=== PATIENT | female | born 1995 | race American Indian/Alaskan Native ===

== ENCOUNTER 2018-12-15 18:12 | Emergency (ER) | payer OTHER ==
[2018-12-15 19:56] VITALS: BP 125/95
--- NOTE | 2018-12-15 19:56 | Emergency Department Report ---
Chief Complaint: Chest Pain Stated Complaint: CHEST PAIN WK/SOB Time Seen by Provider: 12/15/18 19:52 - HPI History of Present Illness: SOB that began 2-3 days ago states also having substernal CP also c/o red bumps on the back of her tongue no sore throat no cough no fever (+) smoker (+) marijuana MSE screening note: Focused history and physical exam performed. Due to findings the following was ordered: CXR ED Disposition for MSE Condition: Stable
--- NOTE | 2018-12-15 21:01 | XRay Report ---
PROCEDURE: CHEST 1 VIEW TECHNIQUE: Chest radiograph posteroanterior projection. CPT 55764 HISTORY: Shortness of breath COMPARISONS: None . FINDINGS: Heart: Normal. Mediastinum/Vessels: Normal. Lungs/Pleural space: Normal. Bony thorax: No acute osseous abnormality. IMPRESSION: Normal examination. This document is electronically signed by Sukhdev Cao MD., December 15 2018 08:59:26 PM ET
--- NOTE | 2018-12-15 21:28 | Emergency Department Report ---
ED Shortness of Breath HPI - General Chief Complaint: Chest Pain Stated Complaint: CHEST PAIN WK/SOB Time Seen by Provider: 12/15/18 19:52 Source: patient Mode of arrival: Ambulatory Limitations: No Limitations - History of Present Illness Initial Comments: Ms. Riddle is a 23 yo female who has had intermittent chest pain and shortness of breath for one week. Sharp left upper chest pain which lasted only several minutes. Last episode occurred a few days prior. Mild shortness of breath. She hears herself when she breathes. She also desires a test. She saw spots on her tongue. Has had fever, chills. No cough. Does smoke cigarettes "a lot". Complaint: shortness of breath -: Gradual, week(s) (1) Severity: mild Consistency: intermittent Improves With: nothing Worsens With: nothing - Related Data Previous Rx's Medication Instructions Recorded Last Taken Type predniSONE [Deltasone] 3 tab PO QDAY 5 Days #15 tab 12/15/18 Unknown Rx Allergies Allergy/AdvReac Type Severity Reaction Status Date / Time No Known Allergies Allergy Unverified 12/15/18 18:15 ED Review of Systems ROS: Stated complaint: CHEST PAIN WK/SOB Other details as noted in HPI Comment: All other systems reviewed and negative Constitutional: fever Respiratory: shortness of breath. denies: cough Gastrointestinal: denies: abdominal pain ED Past Medical Hx - Past Medical History Previous Medical History?: No - Social History Smoking Status: Current Every Day Smoker Substance Use Type: Alcohol, Marijuana - Medications Home Medications: Home Medications Medication Instructions Recorded Confirmed Last Taken Type predniSONE [Deltasone] 3 tab PO QDAY 5 Days #15 tab 12/15/18 Unknown Rx ED Physical Exam - General Limitations: No Limitations General appearance: alert, in no apparent distress, other (pleasant talkative no acute distress) - Head Head exam: Present: atraumatic, normocephalic - Eye Eye exam: Present: normal appearance - ENT ENT exam: Present: mucous membranes moist - Neck Neck exam: Present: normal inspection, full ROM - Respiratory Respiratory exam: Present: normal lung sounds bilaterally. Absent: respiratory distress, wheezes, rales, rhonchi - Cardiovascular Cardiovascular Exam: Present: regular rate, normal rhythm, normal heart sounds. Absent: systolic murmur, diastolic murmur, rubs, gallop - GI/Abdominal GI/Abdominal exam: Present: soft, normal bowel sounds. Absent: distended, tenderness, guarding, rebound - Extremities Exam Extremities exam: Present: normal inspection - Back Exam Back exam: Present: normal inspection - Neurological Exam Neurological exam: Present: alert, oriented X3 - Psychiatric Psychiatric exam: Present: normal affect, normal mood - Skin Skin exam: Present: warm, dry, intact, normal color. Absent: rash ED Course Vital Signs 12/15/18 19:53 Temperature 99.3 F Pulse Rate 84 Respiratory 18 Rate Blood Pressure 125/95 O2 Sat by Pulse 100 Oximetry ED Medical Decision Making - EKG Data EKG shows normal: sinus rhythm, axis, intervals, QRS complexes, ST-T waves Rate: normal - Radiology Data Radiology results: report reviewed Normal chest x-ray. PA Lateral two-view - Medical Decision Making Ms. Riddle presents with persistent shortness of breath and intermittent chest pain. No indication of pulmonary embolism, pneumothorax, pneumonia. PERC negative. No indication of pericarditis. Normal EKG. Normal XCR. Suspect irritation from tobacco abuse. Strongly recommended cessation of tobacco abuse. Prescribed prednisone for possible bronchitis. No Lesions seen on oropharyngeal exam. Critical care attestation.: If time is entered above; I have spent that time in minutes in the direct care of this critically ill patient, excluding procedure time. ED Disposition Clinical Impression: Dyspnea, Tobacco abuse Disposition: DC-01 TO HOME OR SELFCARE Is pt being admited?: No Does the pt Need Aspirin: No Condition: Stable Instructions: Dyspnea (ED), How to Stop Smoking (ED) Prescriptions: predniSONE [Deltasone] 3 tab PO QDAY 5 Days #15 tab Referrals: BALTAZAR SUAREZ MD [Primary Care Provider] - 3-5 Days Forms: Work/School Release Form(ED)
== END 2018-12-15 21:38 | disposition home or self-care (01) ==
LOC: ED 18:12
DX: R07.89 Other chest pain (principal); R06.00 Dyspnea, unspecified; R06.02 Shortness of breath; F17.200 Nicotine dependence, unspecified, uncomplicated; F12.10 Cannabis abuse, uncomplicated
CPT/HCPCS: 71045; 93005; 93010

== ENCOUNTER 2018-12-21 23:55 | Emergency (ER) | payer SELFPAY ==
[2018-12-22 00:12] VITALS: BP 123/85
== END 2018-12-22 01:49 | disposition left against medical advice (07) ==
LOC: ED 23:55
DX: N63.20 Unspecified lump in the left breast, unspecified quadrant (principal); Z53.21 Procedure and treatment not carried out due to patient leaving prior to being seen by health care provider

== ENCOUNTER 2018-12-27 09:38 | Emergency (ER) | payer SELFPAY ==
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
[2018-12-27 11:16] VITALS: BP 125/74
== END 2018-12-27 11:14 | disposition home or self-care (01) ==
LOC: ED 09:38
DX: N61.0 Mastitis without abscess (principal); F17.200 Nicotine dependence, unspecified, uncomplicated
CPT/HCPCS: 99282

== ENCOUNTER 2019-01-12 11:40 | Emergency (ER) | payer SELFPAY ==
[2019-01-12 11:59] VITALS: BP 114/75
--- NOTE | 2019-01-12 13:27 | XRay Report ---
RIGHT WRIST, 3 VIEWS: RIGHT HAND, 3 VIEWS: History: Pain status post fall. A subtle nondisplaced fracture is suspected in the distal radial metaphysis. No obvious intra-articular extension at the radiocarpal joint. The carpal bones, metacarpals and phalanges are intact and unremarkable. No joint pathology. There is moderate soft tissue swelling at the level of the wrist. IMPRESSION: Nondisplaced distal radial fracture.
[2019-01-12] MEDS ORDERED: NORCO 10/325 PO ONE (13:31)
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
== END 2019-01-12 14:35 | disposition home or self-care (01) ==
LOC: ED 11:40
DX: S52.91XA Unspecified fracture of right forearm, initial encounter for closed fracture (principal); Y04.0XXA Assault by unarmed brawl or fight, initial encounter; Y93.89 Activity, other specified; Y92.410 Unspecified street and highway as the place of occurrence of the external cause; Y99.8 Other external cause status

== ENCOUNTER 2019-04-18 17:46 | Emergency (ER) | payer SELFPAY ==
--- NOTE | 2019-04-18 18:07 | Event Note ---
ED Screening Note ED Screening Note: VAG BLEED IN PREG LMP JANUARY ELECTIVE AB IN PAST VAG BLEED TODAY NO CARE PMH NONE RX NONE This initial assessment/diagnostic orders/clinical plan/treatment(s) is/are subject to change based on patients health status, clinical progression and re- assessment by fellow clinical providers in the ED. Further treatment and workup at subsequent clinical providers discretion. Patient/guardian urged not to elope from the ED as their condition may be serious if not clinically assessed and managed. Initial orders include: LABS UA RO AB
[2019-04-18 18:26] LABS: Hematocrit 36.3 % (30.3-42.9); Hemoglobin 12.3 gm/dl (10.1-14.3); Mean Corpuscular HGB Conc 34 % (30-34); Mean Corpuscular Volume 93 fl (79-97); Platelet Count 220 K/mm3 (140-440); Red Blood Count 3.91 M/mm3 (3.65-5.03); Red Cell Distribution Width 12.2 % (13.2-15.2)
[2019-04-18 18:43] LABS: Alanine Aminotransferase 9 units/L (7-56); Albumin 4.3 g/dL (3.9-5); BUN/Creatinine Ratio 30; Blood Urea Nitrogen 15 mg/dL (7-17); Calcium 9.5 mg/dL (8.4-10.2); Hemolysis Index 15
[2019-04-18 18:58] LABS: Bilirubin,Urine NEG (Negative); Blood,Urine LG (Negative); Color,Urine Yellow (Yellow); Mucus,Urine FEW /HPF; Protein,Urine <15 mg/dL mg/dL (Negative); Urobilinogen,Urine < 2.0 mg/dL (<2.0)
--- NOTE | 2019-04-18 22:45 | Ultrasound Report ---
EXAMINATION: Obstetrical Ultrasound, 04/18/2019 INDICATION: Vaginal bleeding in early . COMPARISON: No prior studies are available for comparison. FINDINGS: The uterus appears normal in size. There is a hypoechoic structure within the endometrial canal measu ring 2.3 cm. No pole or heart tones are identified. The bilateral adnexal regions appear within normal limits. Doppler flow is demonstrated to both adnex al regions. There is no free pelvic fluid. IMPRESSION: 1. Single hypoechoic structure measuring 2.3 cm. This is a nonspecific finding but may represent a g estational sac. If this is a gestational sac, it would correspond to a 7 week 2 day . No fet al pole or heart tones are identified. Diagnostic considerations include failed or failing preg obie, too early to visualize or less likely ectopic . Recommend close clinical an d laboratory follow-up. Signer Name: Pauly Blankenship MD Signed: 04/18/2019 10:40 PM Workstation Name: [id number]
--- NOTE | 2019-04-18 22:48 | Ultrasound Report ---
EXAMINATION: Obstetrical Ultrasound, 04/18/2019 INDICATION: Vaginal bleeding in early . COMPARISON: No prior studies are available for comparison. FINDINGS: The uterus is normal in size. There is a hypoechoic structure within the endometrial canal measuring 2.3 cm. No pole or intrauterine is identified. Bilateral adnexal regions appear within normal limits. Doppler flow is demonstrated to both adnexal r egions. There is no free pelvic fluid. IMPRESSION: 1. Single hypoechoic structure within the endometrial canal measuring 2.3 cm. This is a nonspecific finding but may represent a gestational sac. No pole or heart tones are identified. If th is does represent a gestational sac, this would correspond to a 7 week, 2 day . Diagnostic c onsiderations include failed or failing , too early to visualize or less likely ec topic . Close clinical and laboratory follow-up is recommended. Signer Name: Pauly Blankenship MD Signed: 04/18/2019 10:44 PM Workstation Name: [id number]
--- NOTE | 2019-04-18 23:14 | Emergency Department Report ---
ED Female HPI - General Chief complaint: Vaginal Bleeding Stated complaint: 11WKS /BLEEDING/LOWER ABD PAIN Time Seen by Provider: 04/18/19 18:05 Source: patient Mode of arrival: Ambulatory Limitations: No Limitations - History of Present Illness Initial comments: This is a 23 y/o aaf G3, P1, A1, LMP 12 weeks ago presents for 5/10 abd cramping and vaginal spotting earlier today no bleeding at this time, pt has OBGYN but was not able to get an approintment today. LMP JANUARY 2019, there is no fever no chills no n/v MD Complaint: pelvic pain Onset/Timin -: days(s) Location: LLQ, RLQ Radiation: LLQ, RLQ Severity: moderate Severity scale (0 -10): 5 Quality: cramping Consistency: intermittent Improves with: none Worsens with: none Are you Now?: Yes Last Menstrual Period: 01/13/19 EDC: 10/20/19 Associated Symptoms: vaginal bleeding, abdominal pain. denies: nausea/vomiting, fever/chills, headaches, loss of appetite, dysuria, hematuria, rash, shortness of breath, syncope, weakness - Related Data Sexually active: Yes : 3 Para: 1 A: 1 Previous Rx's Medication Instructions Recorded Last Taken Type predniSONE [Deltasone] 3 tab PO QDAY 5 Days #15 tab 12/15/18 Unknown Rx Cephalexin [Keflex] 500 mg PO QID 10 Days #40 capsule 12/27/18 Unknown Rx Sulfamethoxazole/Trimethoprim 1 each PO BID 10 Days #20 tablet 12/27/18 Unknown Rx [Bactrim DS TAB] Acetaminophen/Codeine [Tylenol 1 tab PO Q6H PRN #12 tab 01/12/19 Unknown Rx /Codeine # 3 tab] Ibuprofen [Motrin] 600 mg PO Q8H PRN #20 tablet 01/12/19 Unknown Rx Acetaminophen [Acetaminophen TAB] 650 mg PO Q6HR PRN #30 tablet 04/18/19 Unknown Rx cephALEXin [Keflex] 500 mg PO BID 10 Days #20 cap 04/18/19 Unknown Rx Allergies Allergy/AdvReac Type Severity Reaction Status Date / Time No Known Allergies Allergy Verified 04/18/19 17:47 ED Review of Systems ROS: Stated complaint: 11WKS /BLEEDING/LOWER ABD PAIN Other details as noted in HPI Constitutional: denies: chills, fever Eyes: denies: eye pain, eye discharge, vision change ENT: denies: ear pain, throat pain Respiratory: denies: cough, shortness of breath, wheezing Cardiovascular: as per HPI. denies: chest pain Endocrine: no symptoms reported Gastrointestinal: denies: abdominal pain, nausea, diarrhea Genitourinary: denies: urgency, dysuria, frequency, hematuria, discharge, d yspareunia Musculoskeletal: back pain. denies: joint swelling, arthralgia Skin: denies: rash, lesions Neurological: denies: headache, weakness, paresthesias Psychiatric: denies: anxiety, depression Hematological/Lymphatic: denies: easy bleeding, easy bruising ED Past Medical Hx - Past Medical History Previous Medical History?: No - Surgical History Past Surgical History?: No - Social History Smoking Status: Former Smoker Substance Use Type: None - Medications Home Medications: Home Medications Medication Instructions Recorded Confirmed Last Taken Type predniSONE [Deltasone] 3 tab PO QDAY 5 Days #15 tab 12/15/18 Unknown Rx Cephalexin [Keflex] 500 mg PO QID 10 Days #40 capsule 12/27/18 Unknown Rx Sulfamethoxazole/Trimethoprim 1 each PO BID 10 Days #20 tablet 12/27/18 Unknown Rx [Bactrim DS TAB] Acetaminophen/Codeine [Tylenol 1 tab PO Q6H PRN #12 tab 01/12/19 Unknown Rx /Codeine # 3 tab] Ibuprofen [Motrin] 600 mg PO Q8H PRN #20 tablet 01/12/19 Unknown Rx Acetaminophen [Acetaminophen TAB] 650 mg PO Q6HR PRN #30 tablet 04/18/19 Unknown Rx cephALEXin [Keflex] 500 mg PO BID 10 Days #20 cap 04/18/19 Unknown Rx ED Physical Exam - General Limitations: No Limitations General appearance: alert, in no apparent distress - Head Head exam: Present: atraumatic, normocephalic - Eye Eye exam: Present: normal appearance, PERRL, EOMI Pupils: Present: normal accommodation - ENT ENT exam: Present: normal orophraynx, mucous membranes moist, TM's normal bilaterally, normal external ear exam - Neck Neck exam: Present: normal inspection, full ROM. Absent: tenderness, meningismus, lymphadenopathy, thyromegaly - Respiratory Respiratory exam: Present: normal lung sounds bilaterally. Absent: respiratory distress, wheezes, stridor, chest wall tenderness - Cardiovascular Cardiovascular Exam: Present: regular rate, normal rhythm, normal heart sounds. Absent: systolic murmur, diastolic murmur, rubs, gallop - GI/Abdominal GI/Abdominal exam: Present: soft, normal bowel sounds. Absent: distended, tenderness, guarding, rebound, rigid, bruit, hernia - Rectal Rectal exam: Present: deferred - External exam: Present: other (exam deferred ) - Extremities Exam Extremities exam: Present: normal inspection, full ROM, normal capillary refill. Absent: tenderness, pedal edema, joint swelling, calf tenderness - Back Exam Back exam: Present: normal inspection, full ROM. Absent: tenderness, CVA tenderness (R), CVA tenderness (L), muscle spasm, paraspinal tenderness, rash no teagan - Neurological Exam Neurological exam: Present: alert, oriented X3, CN II-XII intact, normal gait, reflexes normal. Absent: motor sensory deficit - Expanded Neurological Exam Expanded Patient oriented to: Present: person, place, time Speech: Present: fluid speech Cranial nerves: EOM's Intact: Normal, Gag Reflex: Normal, Tongue Deviation: Normal, Nystagmus: Normal, Facial Sensation: Normal Motor strength exam: RUE: 5, LUE: 5, RLE: 5, LLE: 5 Best Eye Response (Donavon): (4) open spontaneously Best Motor Response ([place]on): (6) obeys commands Best Verbal Response (Donavon): (5) oriented [place]on Total: 15 - Psychiatric Psychiatric exam: Present: normal affect, normal mood - Skin Skin exam: Present: warm, dry, intact, normal color. Absent: rash ED Course Vital Signs 04/18/19 18:03 Temperature 98.3 F Pulse Rate 89 Respiratory 16 Rate Blood Pressure 121/72 O2 Sat by Pulse 100 Oximetry ED Medical Decision Making - Lab Data Result diagrams: 04/18/19 18:12 04/18/19 18:12 Labs 04/18/19 04/18/19 04/18/19 18:10 18:12 18:12 WBC 7.0 RBC 3.91 Hgb 12.3 Hct 36.3 MCV 93 MCH 32 MCHC 34 RDW 12.2 L Plt Count 220 Sodium 135 L Potassium 4.1 Chloride 101.9 Carbon Dioxide 24 Anion Gap 13 BUN 15 Creatinine 0.5 L Estimated GFR > 60 BUN/Creatinine Ratio 30 Glucose 92 Calcium 9.5 Total Bilirubin 0.20 AST 16 ALT 9 Alkaline Phosphatase 58 Total Protein 8.0 Albumin 4.3 Albumin/Globulin Ratio 1.2 HCG, Quant Urine Color Yellow Urine Turbidity Slightly-cloudy Urine pH 6.0 Ur Specific Welcome 1.023 Urine Protein <15 mg/dl Urine Glucose (UA) Neg Urine Ketones Neg Urine Blood Lg Urine Nitrite Neg Urine Bilirubin Neg Urine Urobilinogen < 2.0 Ur Leukocyte Esterase Mod Urine WBC (Auto) 38.0 H Urine RBC (Auto) 17.0 U Epithel Cells (Auto) 4.0 Urine Mucus Few Blood Type Ord Rhogam Gestat Weeks 04/18/19 04/18/19 18:12 18:12 WBC RBC Hgb Hct MCV MCH MCHC RDW Plt Count Sodium Potassium Chloride Carbon Dioxide Anion Gap BUN Creatinine Estimated GFR BUN/Creatinine Ratio Glucose Calcium Total Bilirubin AST ALT Alkaline Phosphatase Total Protein Albumin Albumin/Globulin Ratio HCG, Quant 5647 H Urine Color Urine Turbidity Urine pH Ur Specific Welcome Urine Protein Urine Glucose (UA) Urine Ketones Urine Blood Urine Nitrite Urine Bilirubin Urine Urobilinogen Ur Leukocyte Esterase Urine WBC (Auto) Urine RBC (Auto) U Epithel Cells (Auto) Urine Mucus Blood Type A POSITIVE Ord Rhogam Gestat Weeks Rh pos - Radiology Data Radiology results: report reviewed, image reviewed Ordering Physician: CHERISE QUINTEROS Date of Service: 04/18/19 Procedure(s): US OB transvaginal Accession Number(s): [id number] cc: CHERISE QUINTEROS EXAMINATION: Obstetrical Ultrasound, 04/18/2019 INDICATION: Vaginal bleeding in early . COMPARISON: No prior studies are available for comparison. FINDINGS: The uterus appears normal in size. There is a hypoechoic structure within the endometrial canal measuring 2.3 cm. No pole or heart tones are identified. The bilateral adnexal regions appear within normal limits. Doppler flow is demonstrated to both adnexal regions. There is no free pelvic fluid. IMPRESSION: 1. Single hypoechoic structure measuring 2.3 cm. This is a nonspecific finding but may represent a gestational sac. If this is a gestational sac, it would correspond to a 7 week 2 day . No pole or heart tones are identified. Diagnostic considerations include failed or failing , too early to visualize or less likely ectopic . Recommend close clinical and laboratory follow-up. Signer Name: Pauly Blankenship MD Signed: 04/18/2019 10:40 PM Workstation Name: [email or web address] Transcribed By: JOSE L Dictated By: Pauly Blankenship MD Electronically Authenticated By: Pauly Blankenship MD Signed Date/Time: 04/18/192239 DD/ 34 TD/TT: - Medical Decision Making US Single IUP no pole, no HR, 7weeks and 2 dfays likely demise or currently miscarring plan: follow up with obgyn in 2 days, tylenol prn pain, macrobid , return to ed if symptoms worsen or pt and family members verbalized agreement and understanding of same. Critical care attestation.: If time is entered above; I have spent that time in minutes in the direct care of this critically ill patient, excluding procedure time. ED Disposition Clinical Impression: Threatened miscarriage in early , Abdominal pain during in first trimester Disposition: DC-01 TO HOME OR SELFCARE Is pt being admited?: No Does the pt Need Aspirin: No Condition: Stable Instructions: Threatened Miscarriage (ED), Spontaneous Miscarriage (ED), Abdominal Pain in (ED) Additional Instructions: follow up with your OBGYN in 1-2 days return to ed if symptoms worsen. Prescriptions: Acetaminophen [Acetaminophen TAB] 650 mg PO Q6HR PRN #30 tablet PRN Reason: Pain cephALEXin [Keflex] 500 mg PO BID 10 Days #20 cap Referrals: YE BANEGAS MD [Staff Physician] - 3-5 Days Forms: Work/School Release Form(ED) Time of Disposition: 23:28
[2019-04-19 00:17] VITALS: BP 122/74
== END 2019-04-18 23:50 | disposition home or self-care (01) ==
LOC: ED 17:46
DX: O20.0 Threatened abortion (principal); Z3A.01 Less than 8 weeks gestation of pregnancy
CPT/HCPCS: 36415; 76801; 76817; 80053; 81001; 84702; 85027; 86900; 86901; 87086; 96372

== ENCOUNTER 2019-05-27 20:14 | Emergency (ER) | payer SELFPAY ==
--- NOTE | 2019-05-27 20:27 | Event Note ---
ED Screening Note Date of service: 05/27/19 Time: 20:26 ED Screening Note: 23 y/o comes for blister on her lip times 1 day. This initial assessment/diagnostic orders/clinical plan/treatment(s) is/are subject to change based on patients health status, clinical progression and re- assessment by fellow clinical providers in the ED. Further treatment and workup at subsequent clinical providers discretion. Patient/guardian urged not to elope from the ED as their condition may be serious if not clinically assessed and managed. Initial orders include:
[2019-05-27 20:32] VITALS: BP 108/88
--- NOTE | 2019-05-27 21:00 | Emergency Department Report ---
ED ENT HPI - General Chief complaint: Dental/Oral Stated complaint: LIP SORE, NECK PAIN Time Seen by Provider: 05/27/19 20:24 Source: patient Mode of arrival: Ambulatory Limitations: No Limitations - History of Present Illness Initial comments: pt present for fever blister , no fever no swelling no n/v no sob no wheezing no cough no n/v , Onset/Timin -: days(s) Location: lower lip Severity: moderate Severity scale (0 -10): 3 Quality: burning Consistency: intermittent Improves with: none Worsens with: none Associated Symptoms: denies: fever, gum swelling, pain with swallowing, sore throat - Related Data Previous Rx's Medication Instructions Recorded Last Taken Type predniSONE [Deltasone] 3 tab PO QDAY 5 Days #15 tab 12/15/18 Unknown Rx Cephalexin [Keflex] 500 mg PO QID 10 Days #40 capsule 12/27/18 Unknown Rx Sulfamethoxazole/Trimethoprim 1 each PO BID 10 Days #20 tablet 12/27/18 Unknown Rx [Bactrim DS TAB] Acetaminophen/Codeine [Tylenol 1 tab PO Q6H PRN #12 tab 01/12/19 Unknown Rx /Codeine # 3 tab] Ibuprofen [Motrin] 600 mg PO Q8H PRN #20 tablet 01/12/19 Unknown Rx Acetaminophen [Acetaminophen TAB] 650 mg PO Q6HR PRN #30 tablet 04/18/19 Unknown Rx cephALEXin [Keflex] 500 mg PO BID 10 Days #20 cap 04/18/19 Unknown Rx Acyclovir [Zovirax Tab] 400 mg PO Q8H 10 Days #30 tab 05/27/19 Unknown Rx Allergies Allergy/AdvReac Type Severity Reaction Status Date / Time No Known Allergies Allergy Verified 04/18/19 17:47 ED Dental HPI - General Chief complaint: Dental/Oral Stated complaint: LIP SORE, NECK PAIN Time Seen by Provider: 05/27/19 20:24 Source: patient Mode of arrival: Ambulatory Limitations: No Limitations - Related Data Previous Rx's Medication Instructions Recorded Last Taken Type predniSONE [Deltasone] 3 tab PO QDAY 5 Days #15 tab 12/15/18 Unknown Rx Cephalexin [Keflex] 500 mg PO QID 10 Days #40 capsule 12/27/18 Unknown Rx Sulfamethoxazole/Trimethoprim 1 each PO BID 10 Days #20 tablet 12/27/18 Unknown Rx [Bactrim DS TAB] Acetaminophen/Codeine [Tylenol 1 tab PO Q6H PRN #12 tab 01/12/19 Unknown Rx /Codeine # 3 tab] Ibuprofen [Motrin] 600 mg PO Q8H PRN #20 tablet 01/12/19 Unknown Rx Acetaminophen [Acetaminophen TAB] 650 mg PO Q6HR PRN #30 tablet 04/18/19 Unknown Rx cephALEXin [Keflex] 500 mg PO BID 10 Days #20 cap 04/18/19 Unknown Rx Acyclovir [Zovirax Tab] 400 mg PO Q8H 10 Days #30 tab 05/27/19 Unknown Rx Allergies Allergy/AdvReac Type Severity Reaction Status Date / Time No Known Allergies Allergy Verified 04/18/19 17:47 ED Review of Systems ROS: Stated complaint: LIP SORE, NECK PAIN Other details as noted in HPI Constitutional: denies: chills, fever Eyes: denies: eye pain, eye discharge, vision change ENT: other (lip ulcer). denies: ear pain, throat pain Respiratory: denies: cough, shortness of breath, wheezing Cardiovascular: denies: chest pain, palpitations Endocrine: no symptoms reported Gastrointestinal: denies: abdominal pain, nausea, diarrhea Genitourinary: denies: urgency, dysuria, discharge Musculoskeletal: denies: back pain, joint swelling, arthralgia Skin: denies: rash, lesions Neurological: denies: headache, weakness, paresthesias Psychiatric: denies: anxiety, depression Hematological/Lymphatic: denies: easy bleeding, easy bruising ED Past Medical Hx - Past Medical History Previous Medical History?: No - Surgical History Past Surgical History?: Yes Additional Surgical History: - Social History Smoking Status: Current Every Day Smoker Substance Use Type: None - Medications Home Medications: Home Medications Medication Instructions Recorded Confirmed Last Taken Type predniSONE [Deltasone] 3 tab PO QDAY 5 Days #15 tab 12/15/18 Unknown Rx Cephalexin [Keflex] 500 mg PO QID 10 Days #40 capsule 12/27/18 Unknown Rx Sulfamethoxazole/Trimethoprim 1 each PO BID 10 Days #20 tablet 12/27/18 Unknown Rx [Bactrim DS TAB] Acetaminophen/Codeine [Tylenol 1 tab PO Q6H PRN #12 tab 01/12/19 Unknown Rx /Codeine # 3 tab] Ibuprofen [Motrin] 600 mg PO Q8H PRN #20 tablet 01/12/19 Unknown Rx Acetaminophen [Acetaminophen TAB] 650 mg PO Q6HR PRN #30 tablet 04/18/19 Unknown Rx cephALEXin [Keflex] 500 mg PO BID 10 Days #20 cap 04/18/19 Unknown Rx Acyclovir [Zovirax Tab] 400 mg PO Q8H 10 Days #30 tab 05/27/19 Unknown Rx ED Physical Exam - General Limitations: No Limitations General appearance: alert, in no apparent distress - Head Head exam: Present: atraumatic, normocephalic, normal inspection - Eye Eye exam: Present: normal appearance, PERRL, EOMI Pupils: Present: normal accommodation - ENT ENT exam: Present: mucous membranes moist - Neck Neck exam: Present: normal inspection, full ROM. Absent: tenderness - Respiratory Respiratory exam: Present: normal lung sounds bilaterally. Absent: respiratory distress, wheezes, stridor, chest wall tenderness - Cardiovascular Cardiovascular Exam: Present: regular rate, normal rhythm, normal heart sounds. Absent: systolic murmur, diastolic murmur, rubs, gallop - GI/Abdominal GI/Abdominal exam: Present: soft, normal bowel sounds. Absent: distended, tenderness, bruit, hernia - Rectal Rectal exam: Present: deferred - Extremities Exam Extremities exam: Present: normal inspection, full ROM, normal capillary refill - Back Exam Back exam: Present: normal inspection, full ROM. Absent: tenderness - Neurological Exam Neurological exam: Present: alert, oriented X3, CN II-XII intact, normal gait - Psychiatric Psychiatric exam: Present: normal affect, normal mood - Skin Skin exam: Present: warm, dry, intact, normal color. Absent: rash ED Course Vital Signs 05/27/19 20:23 Temperature 98.9 F Pulse Rate 93 H Respiratory 18 Rate Blood Pressure 108/88 O2 Sat by Pulse 98 Oximetry ED Medical Decision Making - Medical Decision Making this is a fever blister plan acyclovir po, otc carmex oint, follow up with [facility] in 2-3 days , will follow up with health department for HSV testing as requested. Critical care attestation.: If time is entered above; I have spent that time in minutes in the direct care of this critically ill patient, excluding procedure time. ED Disposition Clinical Impression: Fever blister Disposition: DC-01 TO HOME OR SELFCARE Is pt being admited?: No Does the pt Need Aspirin: No Condition: Stable Instructions: Oral Herpes Simplex Virus Infections (ED) Prescriptions: Acyclovir [Zovirax Tab] 400 mg PO Q8H 10 Days #30 tab Referrals: BALTAZAR SUAREZ MD [Primary Care Provider] - 3-5 Days [facility] [Outside] - 3-5 Days Forms: Work/School Release Form(ED) Time of Disposition: 21:08
== END 2019-05-27 21:17 | disposition home or self-care (01) ==
LOC: ED 20:14
DX: B00.1 Herpesviral vesicular dermatitis (principal); F17.200 Nicotine dependence, unspecified, uncomplicated
CPT/HCPCS: 99282

== ENCOUNTER 2019-12-18 18:01 | Emergency (ER) | payer MEDICAID ==
--- NOTE | 2019-12-18 18:10 | Emergency Department Report ---
Blank Doc - Documentation Documentation: 24-year-old female that presents with vaginal pain, discharge and pelvic pain. Stated is about 8 weeks . This initial assessment/diagnostic orders/clinical plan/treatment(s) is/are subject to change based on patient's health status, clinical progression and re-assessment by fellow clinical providers in the ED. Further treatment and workup at subsequent clinical providers discretion. Patient/guardians urged not to elope from the ED as their condition may be serious if not clinically assessed and managed. Initial orders include: 1- Patient sent to [facility] for further evaluation and treatment 2- labs 3- UA 4- US OB
[2019-12-18 18:57] LABS: Bacteria,Urine 1+ /HPF (Negative); Bilirubin,Urine NEG (Negative); Blood,Urine SM (Negative); Color,Urine Yellow (Yellow); Mucus,Urine FEW /HPF; Protein,Urine <15 mg/dL mg/dL (Negative); Sperm,Urine FEW /HPF (NP)
--- NOTE | 2019-12-18 20:36 | Ultrasound Report ---
ULTRASOUND OBSTETRIC INDICATION / CLINICAL INFORMATION: pelvic pain. Clinical Gestational Age (GA): 8 weeks 3 days by last menstrual. TECHNIQUE: Transvaginal. COMPARISON: Sonogram from 12/18/2019 FINDINGS: GESTATIONAL SAC: Well-defined oval shape and intrauterine in location. YOLK SAC: No significant abnormality. EMBRYO/FETUS: No significant abnormality. - [place]-Rump Length = 1.76 cm = 8 weeks, 2 day(s). - Heart Rate, beats per minute (if present) = 181 Tiny subchorionic hemorrhage noted. ADNEXA: No significant abnormality. Corpus luteum on the left ovary. FREE FLUID: None. ADDITIONAL FINDINGS: None. IMPRESSION: 1. Single, living intrauterine with estimated sonographic age of 8 weeks, 2 day(s). Signer Name: Derrick Ring MD Signed: 12/18/2019 8:31 PM Workstation Name: [id number]
--- NOTE | 2019-12-18 20:36 | Ultrasound Report ---
ULTRASOUND OBSTETRIC INDICATION / CLINICAL INFORMATION: pelvic pain. Clinical Gestational Age (GA): 8 weeks 3 days by last menstrual. TECHNIQUE: Transvaginal. COMPARISON: Sonogram from 12/18/2019 FINDINGS: GESTATIONAL SAC: Well-defined oval shape and intrauterine in location. YOLK SAC: No significant abnormality. EMBRYO/FETUS: No significant abnormality. - [place]-Rump Length = 1.76 cm = 8 weeks, 2 day(s). - Heart Rate, beats per minute (if present) = 181 Tiny subchorionic hemorrhage noted. ADNEXA: No significant abnormality. Corpus luteum on the left ovary. FREE FLUID: None. ADDITIONAL FINDINGS: None. IMPRESSION: 1. Single, living intrauterine with estimated sonographic age of 8 weeks, 2 day(s). Signer Name: Derrick Ring MD Signed: 12/18/2019 8:31 PM Workstation Name: [id number]
[2019-12-18 20:55] LABS: Basophils % (Auto) 0.1 % (0.0-1.8); Eosinophils # (Auto) 0.1 K/mm3 (0.0-0.4); Eosinophils % (Auto) 1.8 % (0.0-4.3); Hematocrit 35.7 % (30.3-42.9); Hemoglobin 12.3 gm/dl (10.1-14.3); Lymphocytes # (Auto) 1.7 K/mm3 (1.2-5.4); Lymphocytes % (Auto) 20.8 % (13.4-35.0); Mean Corpuscular HGB Conc 35 % (30-34); Mean Corpuscular Volume 92 fl (79-97); Monocytes # (Auto) 0.4 K/mm3 (0.0-0.8); Monocytes % (Auto) 5.4 % (0.0-7.3); Platelet Count 226 K/mm3 (140-440); Red Blood Count 3.87 M/mm3 (3.65-5.03); Red Cell Distribution Width 11.6 % (13.2-15.2)
[2019-12-18] MEDS ORDERED: ACETAMINOPHEN 325 MG/10.15 ML ORAL LIQD UNIT DOSE PO STA (21:54)
--- NOTE | 2019-12-18 22:00 | Emergency Department Report ---
ED Female HPI - General Chief complaint: Vaginal Bleeding Stated complaint: 8 WEEKS PREG/ VAG BURNING/ Time Seen by Provider: 12/18/19 18:09 Source: patient Mode of arrival: Ambulatory Limitations: No Limitations - History of Present Illness Initial comments: 24-year-old -[place] female 8 weeks emerged from complaining of pelvic cramps and vaginal bleeding that has been present for the last 1 to 1-1/2 days primary care doctor/[facility] is of [place] she is not yet seen him head but does have an appointment tomorrow. Reports no fever, chills, sweats no chest pain palpitations no no nausea or vomiting. She reports no dysuria. No rashes. No vaginal discharge or odors. Her bleeding is of a small amount not going through several pads and associated with any flank pain. She reports no prior issues. MD Complaint: vaginal bleeding Location: suprapubic Radiation: non-radiating Severity: mild Consistency: constant Improves with: none Worsens with: none Are you Now?: No Associated Symptoms: vaginal bleeding. denies: vaginal discharge, abdominal pain, nausea/vomiting, loss of appetite, dysuria, shortness of breath, syncope - Related Data Sexually active: No Previous Rx's Medication Instructions Recorded Last Taken Type predniSONE [Deltasone] 3 tab PO QDAY 5 Days #15 tab 12/15/18 Unknown Rx Cephalexin [Keflex] 500 mg PO QID 10 Days #40 capsule 12/27/18 Unknown Rx Sulfamethoxazole/Trimethoprim 1 each PO BID 10 Days #20 tablet 12/27/18 Unknown Rx [Bactrim DS TAB] Acetaminophen/Codeine [Tylenol 1 tab PO Q6H PRN #12 tab 01/12/19 Unknown Rx /Codeine # 3 tab] Ibuprofen [Motrin] 600 mg PO Q8H PRN #20 tablet 01/12/19 Unknown Rx Acetaminophen [Acetaminophen TAB] 650 mg PO Q6HR PRN #30 tablet 04/18/19 Unknown Rx cephALEXin [Keflex] 500 mg PO BID 10 Days #20 cap 04/18/19 Unknown Rx Acyclovir [Zovirax Tab] 400 mg PO Q8H 10 Days #30 tab 05/27/19 Unknown Rx Doxylamine Succinate/Vit B6 1 each PO Q6HR #14 tablet. 12/18/19 Unknown Rx [Maureen Landa 10-10 mg Tablet] Allergies Allergy/AdvReac Type Severity Reaction Status Date / Time No Known Allergies Allergy Verified 04/18/19 17:47 ED Review of Systems ROS: Stated complaint: 8 WEEKS PREG/ VAG BURNING/ Other details as noted in HPI Comment: All other systems reviewed and negative ED Past Medical Hx - Past Medical History Previous Medical History?: No - Surgical History Past Surgical History?: No Additional Surgical History: - Social History Smoking Status: Never Smoker Substance Use Type: None - Medications Home Medications: Home Medications Medication Instructions Recorded Confirmed Last Taken Type predniSONE [Deltasone] 3 tab PO QDAY 5 Days #15 tab 12/15/18 Unknown Rx Cephalexin [Keflex] 500 mg PO QID 10 Days #40 capsule 12/27/18 Unknown Rx Sulfamethoxazole/Trimethoprim 1 each PO BID 10 Days #20 tablet 12/27/18 Unknown Rx [Bactrim DS TAB] Acetaminophen/Codeine [Tylenol 1 tab PO Q6H PRN #12 tab 01/12/19 Unknown Rx /Codeine # 3 tab] Ibuprofen [Motrin] 600 mg PO Q8H PRN #20 tablet 01/12/19 Unknown Rx Acetaminophen [Acetaminophen TAB] 650 mg PO Q6HR PRN #30 tablet 04/18/19 Unknown Rx cephALEXin [Keflex] 500 mg PO BID 10 Days #20 cap 04/18/19 Unknown Rx Acyclovir [Zovirax Tab] 400 mg PO Q8H 10 Days #30 tab 05/27/19 Unknown Rx Doxylamine Succinate/Vit B6 1 each PO Q6HR #14 tablet. 12/18/19 Unknown Rx [Maureen Landa 10-10 mg Tablet] ED Physical Exam - General Limitations: No Limitations General appearance: alert, in no apparent distress - Head Head exam: Present: atraumatic, normocephalic - Eye Eye exam: Present: normal appearance, PERRL, EOMI Pupils: Present: normal accommodation - ENT ENT exam: Present: normal exam, normal orophraynx, mucous membranes moist, TM's normal bilaterally - Neck Neck exam: Present: normal inspection, full ROM - Respiratory Respiratory exam: Present: normal lung sounds bilaterally. Absent: respiratory distress, wheezes, rales, chest wall tenderness - Cardiovascular Cardiovascular Exam: Present: regular rate, normal rhythm. Absent: systolic murmur, diastolic murmur, rubs, gallop - GI/Abdominal GI/Abdominal exam: Present: soft, normal bowel sounds - Extremities Exam Extremities exam: Present: normal inspection - Back Exam Back exam: Present: normal inspection - Neurological Exam Neurological exam: Present: alert, oriented X3 - Psychiatric Psychiatric exam: Present: normal affect, normal mood - Skin Skin exam: Present: warm, dry, intact, normal color. Absent: rash ED Course Vital Signs 12/18/19 18:07 Temperature 98.7 F Pulse Rate 104 H Respiratory 20 Rate Blood Pressure 121/85 O2 Sat by Pulse 99 Oximetry ED Medical Decision Making - Lab Data Result diagrams: 12/18/19 20:41 - Medical Decision Making A new 8-week female presents to the emergency department complaining of pelvic cramping and nausea and did follow-up with [facility] tomorrow but was concerned about her abdominal pain. Considered ectopic , spectrum of miscarriage/ (threatened, inevitable, incomplete, complete, septic) as well as causes of female-specific abdominal pain unrelated to (e.g., pelvic inflammatory disease with or without tubo-ovarian abscess, Wkxr-Vwrc-Ckflnc, etc.). Also considered causes of abdominal pain that are not gender-specific (e.g., appendicitis, volvulus, small bowel obstruction, mesenteric adenitis, acute cholecystitis/choledocholithiasis and other biliary pathology, etc.). Patient well-appearing with normal vital signs. Patient is [place] therefore requires/does not require RhoGAM. Gave patient strict return precautions for worsening pain, increased vaginal bleeding, fever (temperature above 100.4F), lightheadedness/syncope or other concerns. For consideration of ectopic , the quantitative beta hCG was over 100,000 and therefore was above/below the discriminatory zone of 1,500 mIU/mL. Transvaginal/transabdominal ultrasound demonstrated a live intrauterine with no complications. 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 Critical care attestation.: If time is entered above; I have spent that time in minutes in the direct care of this critically ill patient, excluding procedure time. ED Disposition Clinical Impression: Threatened miscarriage in early Disposition: DC-01 TO HOME OR SELFCARE Is pt being admited?: No Does the pt Need Aspirin: No Condition: Stable Instructions: Threatened Miscarriage (ED) Prescriptions: Doxylamine Succinate/Vit B6 [Maureen Landa 10-10 mg Tablet] 1 each PO Q6HR #14 tablet. Referrals: PRIMARY CARE, [Primary Care Provider] - 3-5 Days [facility] [Provider Group] - 3-5 Days
[2019-12-18 22:17] VITALS: BP 121/85
== END 2019-12-18 22:38 | disposition home or self-care (01) ==
LOC: ED 18:01
DX: O20.0 Threatened abortion (principal); Z3A.08 8 weeks gestation of pregnancy; Z98.890 Other specified postprocedural states; Z79.1 Long term (current) use of non-steroidal anti-inflammatories (NSAID); Z79.899 Other long term (current) drug therapy
CPT/HCPCS: 36415; 76801; 76817; 81001; 84702; 85025; 87086

== ENCOUNTER 2021-03-04 09:24 | Emergency (ER) | payer MEDICAID ==
--- NOTE | 2021-03-04 09:57 | Emergency Department Report ---
HPI - General Time Seen by Provider: 03/04/21 09:45 - HPI HPI: Room 18 The patient is a 25-year-old female present with a chief complaint of right shoulder pain. 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 Patient states she awakened this morning and believes she was reaching for something when it popped out of place. Patient currently gets her pain a score of 7/10. Patient was administered analgesia by EMS prior to arrival. Patient states her last p.o. occurred last night ED Past Medical Hx - Past Medical History Additional medical history: Right shoulder dislocations - Surgical History Additional Surgical History: - Family History Family history: no significant - Social History Smoking Status: Current Every Day Smoker (1/10 pack/day) Substance Use Type: None (Denies illicit drug use), Alcohol (Frequently) - Medications Home Medications: Home Medications Medication Instructions Recorded Confirmed Last Taken Type predniSONE [Deltasone] 3 tab PO QDAY 5 Days #15 tab 12/15/18 Unknown Rx Sulfamethoxazole/Trimethoprim 1 each PO BID 10 Days #20 tablet 12/27/18 Unknown Rx [Bactrim DS TAB] cephALEXin [Keflex] 500 mg PO QID 10 Days #40 capsule 12/27/18 Unknown Rx Acetaminophen/Codeine [Tylenol 1 tab PO Q6H PRN #12 tab 01/12/19 Unknown Rx /Codeine # 3 tab] Ibuprofen [Motrin] 600 mg PO Q8H PRN #20 tablet 01/12/19 Unknown Rx Acetaminophen [Acetaminophen TAB] 650 mg PO Q6HR PRN #30 tablet 04/18/19 Unknown Rx cephALEXin [Keflex] 500 mg PO BID 10 Days #20 cap 04/18/19 Unknown Rx Acyclovir [Zovirax Tab] 400 mg PO Q8H 10 Days #30 tab 05/27/19 Unknown Rx Doxylamine Succinate/Vit B6 1 each PO Q6HR #14 tablet. 12/18/19 Unknown Rx [Maureen Landa 10-10 mg Tablet] HYDROcodone/Acetaminop 7.5-325 15 ml PO Q4HR PRN #90 ml 03/04/21 Unknown Rx [Jewell] ED Review of Systems ROS: Stated complaint: DISLOCATED RT SHOULDER Other details as noted in HPI Constitutional: no symptoms reported Eyes: denies: eye pain ENT: denies: throat pain Respiratory: no symptoms reported Cardiovascular: denies: chest pain Endocrine: no symptoms reported Gastrointestinal: denies: abdominal pain Genitourinary: denies: dysuria Musculoskeletal: arthralgia Neurological: denies: headache Physical Exam - Physical Exam Physical Exam: GENERAL: The patient is well-developed well-nourished female lying on stretcher not appearing to be in acute distress. [] HEENT: Normocephalic. Atraumatic. Extraocular motions are intact. Patient has moist mucous membranes. NECK: Supple. Trachea midline CHEST/LUNGS: There is no respiratory distress noted. HEART/CARDIOVASCULAR: Regular. There is no tachycardia. 2+ right radial pulse ABDOMEN: There is no abdominal distention. SKIN: There is no rash. There is no edema. There is no diaphoresis. NEURO: The patient is awake, alert, and oriented. The patient is cooperative. The patient has no focal neurologic deficits. The patient has normal speech. Normal sensation to light touch of the right shoulder. MUSCULOSKELETAL: There is pain of the right shoulder. - Moderate Sedation Indications: fracture/dislocation redu ASA Class: I Mallampati Airway Score: 1 Preparation: panel monitor applied, pulse oximeter, supplemental O2 applied, suction/airway equipment at bedside, IV secured IV Etomidate Dose (mgs): 12 Complications: none Patient Tolerated Procedure: no complications - Orthopedic Joint Reduction Joint #1 Consent Obtained: verbal consent Time Out Performed: Yes Side: right Joint Reduction Location: shoulder Analgesia: moderate sedation Shoulder Technique Used (if applicable): traction/counter-traction Technique Used: traction/counter-traction Post-Reduction Neuro Exam: intact Post-Reduction Vascular Exam: intact Post Reduction X-Ray Obtained: Yes Post Reduction X-Ray Results: reduced Splint Applied: Yes (Shoulder immobilizer) Patient Tolerated Procedure: well ED Medical Decision Making - Radiology Data Radiology results: report reviewed (Right shoulder x-ray #1, right shoulder x- ray #2), image reviewed (Right shoulder x-ray #1, right shoulder x-ray #2) interpreted by me: Right shoulder [id number] dislocation. No fracture seen Right shoulder x-ray #2-interval reduction. No fracture seen [facility] [address] [place] [address] XRay Report Signed Patient: JOE BRADFORD MR#: [id number] : 0 1995 Acct:[id number] Age/Sex: 25 / F ADM Date: 03/04/21 Loc: ED Attending Dr: Ordering Physician: CHARBEL HERRERA MD Date of Service: 03/04/21 Procedure(s): XR shoulder 2+V RT Accession Number(s): [id number] cc: CHARBEL HERRERA MD Fluoro Time In Minutes: RIGHT SHOULDER 3 VIEWS INDICATION: Suspected dislocation after reaching up. COMPARISON: None. IMPRESSION: An anterior, inferior dislocation is identified at the right glenohumeral joint. Normal articulation at the AC joint. No obvious associated fracture. No significant degenerative changes. Signer Name: Bobo Wagoner Jr, MD Signed: 03/04/2021 10:44 AM Workstation Name: [id number] Transcribed By: [facility] Dictated By: BOBO WAGONER JR, MD Electronically Authenticated By: BOBO WAGONER JR, MD Signed Date/Time: 03/04/211043 DD/ 43 TD/TT: Print Cancel [address] [address] XRay Report Signed Patient: JOE BRADFORD MR#: [id number] : 1995 Acct:[id number] Age/Sex: 25 / F ADM Date: 03/04/21 Loc: ED Attending Dr: Ordering Physician: CHARBEL HERRERA MD Date of Service: 03/04/21 Procedure(s): XR shoulder 1V RT Accession Number(s): [id number] cc: CHARBEL HERRERA MD Fluoro Time In Minutes: RIGHT SHOULDER 1 VIEW(S) INDICATION / CLINICAL INFORMATION: Post reduction COMPARISON: Radiograph from the same date. FINDINGS: There has been interval reduction of the right shoulder, with humeral head now projecting in anatomic alignment. No definite fracture. Signer Name: Jone Villanueva MD Signed: 03/04/2021 12:48 PM Workstation Name: [id number] Transcribed By: SS Dictated By: JONE VILLANUEVA Electronically Authenticated By: JONE VILLANUEVA Signed Date/Time: 03/04/21 124 DD/ 1247 TD/TT: Print Cancel - Differential Diagnosis Shoulder dislocation, humeral fracture, Critical care attestation.: If time is entered above; I have spent that time in minutes in the direct care of this critically ill patient, excluding procedure time. ED Disposition Clinical Impression: Anterior dislocation of right shoulder, Acute pain of right shoulder Disposition: TO HOME OR SELFCARE Is pt being admited?: No Does the pt Need Aspirin: No Condition: Stable Instructions: Recurrent Shoulder Laxity and Instability, Shoulder Dislocation Additional Instructions: Return to the emergency department should you develop worsening symptoms, inability to tolerate food or liquids, high fever or any other concerns Prescriptions: HYDROcodone/Acetaminop 7.5-325 [Jewell] 15 ml PO Q4HR PRN #90 ml PRN Reason: Pain Referrals: KARINA NIXON MD [Staff Physician] - 3-5 Days (Dr. Nixon is an orthope dic surgeon. Please follow-up with him for further evaluation) Time of Disposition: 13:04
[2021-03-04] MEDS ORDERED: fentaNYL 100 MCG/2 ML INJ IV ONE (10:15)
[2021-03-04] MEDS ORDERED: ETOMIDATE 20 MG/10 ML INJ IV ONE (10:40)
--- NOTE | 2021-03-04 10:49 | XRay Report ---
RIGHT SHOULDER 3 VIEWS INDICATION: Suspected dislocation after reaching up. COMPARISON: None. IMPRESSION: An anterior, inferior dislocation is identified at the right glenohumeral joint. Normal articulation at the AC joint. No obvious associated fracture. No significant degenerative changes. Signer Name: Bobo Wagoner Jr, MD Signed: 03/04/2021 10:44 AM Workstation Name: [id number]
[2021-03-04 12:19] VITALS: BP 148/88
--- NOTE | 2021-03-04 12:52 | XRay Report ---
RIGHT SHOULDER 1 VIEW(S) INDICATION / CLINICAL INFORMATION: Post reduction COMPARISON: Radiograph from the same date. FINDINGS: There has been interval reduction of the right shoulder, with humeral head now projecting in anatomic alignment. No definite fracture. Signer Name: Randal Jameson MD Signed: 03/04/2021 12:48 PM Workstation Name: [id number]
== END 2021-03-04 13:33 | disposition home or self-care (01) ==
LOC: ED 09:24
DX: S43.084A Other dislocation of right shoulder joint, initial encounter (principal); F17.210 Nicotine dependence, cigarettes, uncomplicated; Z98.890 Other specified postprocedural states; Z79.899 Other long term (current) drug therapy; X50.1XXA Overexertion from prolonged static or awkward postures, initial encounter; Y93.89 Activity, other specified; Y92.89 Other specified places as the place of occurrence of the external cause; Y99.8 Other external cause status
CPT/HCPCS: 23650; 73020; 73030; 96374; 99284; J3010

== ENCOUNTER 2021-05-27 06:46 | Emergency (ER) | payer MEDICAID ==
[2021-05-27 09:13] VITALS: BP 120/86
--- NOTE | 2021-05-27 09:40 | Emergency Department Report ---
Upper Extremity - HPI Chief Complaint: Extremity Injury, Upper Stated Complaint: LEFT ARM PAIN Time Seen by Provider: 05/27/21 09:12 Upper Extremity: Left Shoulder Occurred When: 1 Day Mechanism: Fall, Hyperextension Severity: moderate Symptoms: Yes Pain with Movement, Yes Limited Range of Movement, No Deformity, No Numbness, No Weakness, No Swelling, No Bruising/Ecchymosis, No Laceration or Abrasion ED Review of Systems ROS: Stated complaint: LEFT ARM PAIN Other details as noted in HPI Comment: All other systems reviewed and negative Constitutional: denies: fever Eyes: denies: eye pain ENT: denies: ear pain Respiratory: denies: cough Cardiovascular: denies: chest pain Gastrointestinal: denies: abdominal pain Genitourinary: denies: hematuria Musculoskeletal: as per HPI Skin: denies: rash Neurological: denies: headache Hematological/Lymphatic: denies: easy bruising ED Past Medical Hx - Past Medical History Hx Hypertension: No Hx CVA: No Hx Heart Attack/AMI: No Hx Congestive Heart Failure: No Hx Diabetes: No Hx Pulmonary Embolism: No Hx GERD: No Hx Liver Disease: No Hx Renal Disease: No Hx Sickle Cell Disease: No Hx Arthritis: No Hx Headaches / Migraines: No Hx Seizures: No Hx Kidney Stones: No Hx Psychiatric Treatment: No Hx Asthma: No Hx COPD: No Hx Tuberculosis: No Hx Dementia: No Hx HIV: No Additional medical history: Right shoulder dislocations - Surgical History Hx Coronary Stent: No Hx Open Heart Surgery: No Hx Pacemaker: No Hx Internal Defibrillator: No Hx Cholecystectomy: No Hx Appendectomy: No Hx Breast Surgery: No Additional Surgical History: - Social History Smoking Status: Current Every Day Smoker (1/10 pack/day) Substance Use Type: None (Denies illicit drug use), Alcohol (Frequently) - Medications Home Medications: Home Medications Medication Instructions Recorded Confirmed Last Taken Type predniSONE [Deltasone] 3 tab PO QDAY 5 Days #15 tab 12/15/18 Unknown Rx Sulfamethoxazole/Trimethoprim 1 each PO BID 10 Days #20 tablet 12/27/18 Unknown Rx [Bactrim DS TAB] cephALEXin [Keflex] 500 mg PO QID 10 Days #40 capsule 12/27/18 Unknown Rx Acetaminophen/Codeine [Tylenol 1 tab PO Q6H PRN #12 tab 01/12/19 Unknown Rx /Codeine # 3 tab] Ibuprofen [Motrin] 600 mg PO Q8H PRN #20 tablet 01/12/19 Unknown Rx Acetaminophen [Acetaminophen TAB] 650 mg PO Q6HR PRN #30 tablet 04/18/19 Unknown Rx cephALEXin [Keflex] 500 mg PO BID 10 Days #20 cap 04/18/19 Unknown Rx Acyclovir [Zovirax Tab] 400 mg PO Q8H 10 Days #30 tab 05/27/19 Unknown Rx Doxylamine Succinate/Vit B6 1 each PO Q6HR #14 tablet. 12/18/19 Unknown Rx [Diclegis Dr 10-10 mg Tablet] HYDROcodone/Acetaminop 7.5-325 15 ml PO Q4HR PRN #90 ml 03/04/21 Unknown Rx [[place]] Upper Extremity Exam - Exam General: Vital signs noted. No distress. Alert and acting appropriately. Head and Torso: No HEENT Abnormality, No Neck Tenderness, No Back Tenderness Shoulder Exam: Yes Shoulder Tenderness, No Clavicle Tenderness, No Normal Range of Motion in Shoulder (limited due to pain), No Shoulder Deformity, No AC Joint Tenderness Arm Exam: No Arm/Humerus Tenderness, No Arm Deformity Elbow: Yes Normal Range of Motion in Elbow, No Elbow Tenderness, No Elbow Deformity Forearm: No Forearm Tenderness, No Forearm Deformity Wrist: No Wrist Tenderness, No Normal ROM in Wrist, No Wrist Deformity Hand: No Hand Tenderness, No Hand Deformity CMS Exam: Yes Normal Distal Pulses, Yes Normal Capillary Refill, Yes Normal Distal Sensation, No Broken Skin ED Course Vital Signs 05/27/21 09:12 Temperature 99.2 F Pulse Rate 101 H Respiratory 18 Rate Blood Pressure 120/86 O2 Sat by Pulse 100 Oximetry - Reevaluation(s) Reevaluation #1: 05/27/21 10:30 radiographs are normal based on my review. two views of the shoulder were obtained. there is no fracture or dislocation noted. AC joint is intact. no soft tissue swelling noted. 05/27/21 10:31 ED Medical Decision Making - Medical Decision Making Radiographs ordered. No obvious deformity. Good pulses. Patient presented with an injury to the left shoulder. There was no radiographic fracture or dislocation noted. She did not have any evidence of nerve deficit or loss of deltoid sensation. Pulses and cap refill were normal suggesting no vascular injury. She can be treated with ice and OTC anagesics. She was instructed to call her orthopedic surgeon for ongoing management. Critical care attestation.: If time is entered above; I have spent that time in minutes in the direct care of this critically ill patient, excluding procedure time. ED Disposition Clinical Impression: Left shoulder strain Disposition: HOME / SELF CARE / HOMELESS Is pt being admited?: No Does the pt Need Aspirin: No Condition: Stable Instructions: How to Use Cold Therapy Additional Instructions: Ice and rest the shoulder. See your regular doctor or orthopedic doctor for recheck. Referrals: PRIMARY CARE, [Primary Care Provider] - 3-5 Days Time of Disposition: 10:31 Print Language: AZERI
--- NOTE | 2021-05-27 10:29 | XRay Report ---
LEFT SHOULDER 3 VIEW(S) INDICATION / CLINICAL INFORMATION: fall w/injury. Left shoulder pain. COMPARISON: None available. FINDINGS: BONES / JOINT(S): No acute fracture or subluxation. No significant arthritis. SOFT TISSUES: No significant abnormality. ADDITIONAL FINDINGS: None. Signer Name: Deon Tompkins MD Signed: 05/27/2021 10:25 AM Workstation Name: [id number]
[2021-05-27] MEDS ORDERED: IBUPROFEN ORAL LIQD 100 MG/5 ML ORAL.LIQD PO ONE (10:47)
== END 2021-05-27 11:11 | disposition home or self-care (01) ==
LOC: ED 06:46
DX: S46.912A Strain of unspecified muscle, fascia and tendon at shoulder and upper arm level, left arm, initial encounter (principal); F17.200 Nicotine dependence, unspecified, uncomplicated; F10.20 Alcohol dependence, uncomplicated; X58.XXXA Exposure to other specified factors, initial encounter; Y93.89 Activity, other specified; Y92.89 Other specified places as the place of occurrence of the external cause; Y99.8 Other external cause status
CPT/HCPCS: 99283

== ENCOUNTER 2021-09-27 02:02 | Emergency (ER) | payer MEDICAID ==
[2021-09-27 02:32] LABS: Basophils % (Auto) 0.3 % (0.0-1.8); Eosinophils # (Auto) 0.2 K/mm3 (0.0-0.4); Eosinophils % (Auto) 2.1 % (0.0-4.3); Hemoglobin 11.2 gm/dl (10.1-14.3); Lymphocytes # (Auto) 1.9 K/mm3 (1.2-5.4); Mean Corpuscular HGB Conc 34 % (30-34); Mean Corpuscular Volume 92 fl (79-97); Monocytes # (Auto) 0.6 K/mm3 (0.0-0.8); Monocytes % (Auto) 7.1 % (0.0-7.3); Platelet Count 223 K/mm3 (140-440); Red Blood Count 3.57 M/mm3 (3.65-5.03); Red Cell Distribution Width 11.8 % (13.2-15.2)
[2021-09-27 02:47] LABS: Alanine Aminotransferase 9 units/L (7-56); Albumin 3.9 g/dL (3.9-5); Blood Urea Nitrogen 10 mg/dL (7-17); Calcium 9.6 mg/dL (8.4-10.2); Hemolysis Index 5
[2021-09-27 02:58] LABS: BUN/Creatinine Ratio 25
[2021-09-27] MEDS ORDERED: ACETAMINOPHEN 500 MG TAB PO ONE (03:34)
[2021-09-27] MEDS ORDERED: ACETAMINOPHEN 325 MG/10.15 ML ORAL LIQD UNIT DOSE PO ONE (04:38)
--- NOTE | 2021-09-27 04:43 | Ultrasound Report ---
ULTRASOUND OBSTETRIC INDICATION / CLINICAL INFORMATION: Pain. Clinical Gestational Age (GA) in weeks, days: 8, 0 TECHNIQUE: Transabdominal and Transvaginal. COMPARISON: None available. FINDINGS: GESTATIONAL SAC: Well-defined oval shape and intrauterine in location. YOLK SAC: No significant abnormality. EMBRYO/FETUS: No significant abnormality. - [place]-Rump Length = 1.5 cm = 7, 6 weeks, days - Heart Rate, beats per minute (if present) = 168 ADNEXA: No significant abnormality. FREE FLUID: None. ADDITIONAL FINDINGS: None. IMPRESSION: 1. Single, living intrauterine with estimated sonographic age of 7, 6 weeks, days. h eart tones noted at 168 bpm Signer Name: Mu Garcia DO Signed: 09/27/2021 4:39 AM Workstation Name: [email or web address] [id number]
--- NOTE | 2021-09-27 04:43 | Ultrasound Report ---
ULTRASOUND OBSTETRIC INDICATION / CLINICAL INFORMATION: Pain. Clinical Gestational Age (GA) in weeks, days: 8, 0 TECHNIQUE: Transabdominal and Transvaginal. COMPARISON: None available. FINDINGS: GESTATIONAL SAC: Well-defined oval shape and intrauterine in location. YOLK SAC: No significant abnormality. EMBRYO/FETUS: No significant abnormality. - [place]-Rump Length = 1.5 cm = 7, 6 weeks, days - Heart Rate, beats per minute (if present) = 168 ADNEXA: No significant abnormality. FREE FLUID: None. ADDITIONAL FINDINGS: None. IMPRESSION: 1. Single, living intrauterine with estimated sonographic age of 7, 6 weeks, days. h eart tones noted at 168 bpm Signer Name: Mu Garcia DO Signed: 09/27/2021 4:39 AM Workstation Name: [id number]
[2021-09-27] MEDS ORDERED: ONDANSETRON 4 MG ODT TAB PO ONE (05:44)
[2021-09-27] MEDS ORDERED: metroNIDAZOLE 500 MG TAB PO ONE (05:44)
[2021-09-27 06:01] LABS: Bacteria,Urine 1+ /HPF (Negative); Bilirubin,Urine NEG (Negative); Blood,Urine SM (Negative); Color,Urine Yellow (Yellow); Mucus,Urine FEW /HPF; Protein,Urine <15 mg/dL mg/dL (Negative)
--- NOTE | 2021-09-27 06:24 | Emergency Department Report ---
ED Female HPI - General Chief complaint: Abdominal Pain Stated complaint: ABDOMINAL PAIN Source: patient Mode of arrival: Ambulatory Limitations: No Limitations - History of Present Illness Initial comments: Patient is a A3 25-year-old -[place] female with no past medical history who is approximately 7 weeks gestation and who presented to the ED with complaint of acute onset persistent suprapubic pain, vaginal discharge, dysuria, urinary frequency and urgency for the last 3 days. Patient states that she has also been experiencing significant persistent vaginal itching and swelling in the labia and is unable to wear undergarments because of pain. Patient denies dizziness, syncope, chest pain, shortness of breath, nausea and vomiting, vaginal bleeding, low back pain, dizziness, syncope or diarrhea and sore throat. MD Complaint: vaginal discharge, dysuria, pelvic pain, possible STD -: Gradual, Sudden, days(s) (3) Location: labia, suprapubic, other (Vaginal) Radiation: non-radiating Severity: severe Severity scale (0 -10): 8 Quality: sharp, burning Consistency: constant Improves with: none Worsens with: urination, intercourse, movement Are you Now?: Yes (7 weeks gestation) Associated Symptoms: denies other symptoms, vaginal discharge, abdominal pain (Suprapubic pain), dysuria. denies: vaginal bleeding, nausea/vomiting, fever/chills, headaches, loss of appetite, hematuria, rash, seizure, shortness of breath, syncope, weakness - Related Data Sexually active: Yes : 5 Para: 1 A: 3 Previous Rx's Medication Instructions Recorded Last Taken Type predniSONE [Deltasone] 3 tab PO QDAY 5 Days #15 tab 12/15/18 Unknown Rx Sulfamethoxazole/Trimethoprim 1 each PO BID 10 Days #20 tablet 12/27/18 Unknown Rx [Bactrim DS TAB] cephALEXin [Keflex] 500 mg PO QID 10 Days #40 capsule 12/27/18 Unknown Rx Acetaminophen/Codeine [Tylenol 1 tab PO Q6H PRN #12 tab 01/12/19 Unknown Rx /Codeine # 3 tab] Ibuprofen [Motrin] 600 mg PO Q8H PRN #20 tablet 01/12/19 Unknown Rx Acetaminophen [Acetaminophen TAB] 650 mg PO Q6HR PRN #30 tablet 04/18/19 Unknown Rx cephALEXin [Keflex] 500 mg PO BID 10 Days #20 cap 04/18/19 Unknown Rx Acyclovir [Zovirax Tab] 400 mg PO Q8H 10 Days #30 tab 05/27/19 Unknown Rx Doxylamine Succinate/Vit B6 1 each PO Q6HR #14 tablet. 12/18/19 Unknown Rx [Maureen Landa 10-10 mg Tablet] HYDROcodone/Acetaminop 7.5-325 15 ml PO Q4HR PRN #90 ml 03/04/21 Unknown Rx [[place]] Acetaminophen [Acetaminophen ORAL 20 ml PO Q6H PRN #240 ml 09/27/21 Unknown Rx LIQ] Azithromycin Oral Liqd [Zithromax 25 ml PO ONCE #25 ml 09/27/21 Unknown Rx 200 MG/5 ML ORAL LIQ] Promethazine [Phenergan 6.25 mg/5 10 ml PO Q6H PRN #150 ml 09/27/21 Unknown Rx ml ORAL LIQ] cephALEXin 20 ml PO Q12H #400 ml 09/27/21 Unknown Rx metroNIDAZOLE [metroNIDAZOLE 70 gm VG QHS #1 gel.w.appl 09/27/21 Unknown Rx VAGINAL 0.75% gel] Allergies Allergy/AdvReac Type Severity Reaction Status Date / Time No Known Allergies Allergy Verified 05/27/21 09:08 ED Review of Systems ROS: Stated complaint: ABDOMINAL PAIN Other details as noted in HPI Constitutional: denies: chills, fever Eyes: denies: eye pain, eye discharge, vision change ENT: denies: ear pain, throat pain Respiratory: denies: cough, shortness of breath, wheezing Cardiovascular: denies: chest pain, palpitations Endocrine: no symptoms reported Gastrointestinal: abdominal pain (Suprapubic pain). denies: nausea, vomiting, diarrhea, constipation, hematemesis, melena Genitourinary: urgency, dysuria, frequency, discharge, dyspareunia Musculoskeletal: denies: back pain, joint swelling, arthralgia Skin: denies: rash, lesions Neurological: denies: headache, weakness, paresthesias Psychiatric: denies: anxiety, depression Hematological/Lymphatic: denies: easy bleeding, easy bruising ED Past Medical Hx - Past Medical History Previous Medical History?: Yes Hx Hypertension: No Hx CVA: No Hx Heart Attack/AMI: No Hx Congestive Heart Failure: No Hx Diabetes: No Hx Deep Vein Thrombosis: No Hx Pulmonary Embolism: No Hx GERD: No Hx Liver Disease: No Hx Renal Disease: No Hx Sickle Cell Disease: No Hx Arthritis: No Hx Headaches / Migraines: No Hx Seizures: No Hx Kidney Stones: No Hx Psychiatric Treatment: No Hx Asthma: No Hx COPD: No Hx Tuberculosis: No Hx Dementia: No Hx HIV: No Additional medical history: Right shoulder dislocations - Surgical History Past Surgical History?: Yes Hx Coronary Stent: No Hx Open Heart Surgery: No Hx Pacemaker: No Hx Internal Defibrillator: No Hx Cholecystectomy: No Hx Appendectomy: No Hx Breast Surgery: No Additional Surgical History: - Social History Smoking Status: Current Every Day Smoker (1/10 pack/day) Substance Use Type: None (Denies illicit drug use), Alcohol (Frequently) - Medications Home Medications: Home Medications Medication Instructions Recorded Confirmed Last Taken Type predniSONE [Deltasone] 3 tab PO QDAY 5 Days #15 tab 12/15/18 Unknown Rx Sulfamethoxazole/Trimethoprim 1 each PO BID 10 Days #20 tablet 12/27/18 Unknown Rx [Bactrim DS TAB] cephALEXin [Keflex] 500 mg PO QID 10 Days #40 capsule 12/27/18 Unknown Rx Acetaminophen/Codeine [Tylenol 1 tab PO Q6H PRN #12 tab 01/12/19 Unknown Rx /Codeine # 3 tab] Ibuprofen [Motrin] 600 mg PO Q8H PRN #20 tablet 01/12/19 Unknown Rx Acetaminophen [Acetaminophen TAB] 650 mg PO Q6HR PRN #30 tablet 04/18/19 Unknown Rx cephALEXin [Keflex] 500 mg PO BID 10 Days #20 cap 04/18/19 Unknown Rx Acyclovir [Zovirax Tab] 400 mg PO Q8H 10 Days #30 tab 05/27/19 Unknown Rx Doxylamine Succinate/Vit B6 1 each PO Q6HR #14 tablet.dr 12/18/19 Unknown Rx [Diclegis Dr 10-10 mg Tablet] HYDROcodone/Acetaminop 7.5-325 15 ml PO Q4HR PRN #90 ml 03/04/21 Unknown Rx [[place]] Acetaminophen [Acetaminophen ORAL 20 ml PO Q6H PRN #240 ml 09/27/21 Unknown Rx LIQ] Azithromycin Oral Liqd [Zithromax 25 ml PO ONCE #25 ml 09/27/21 Unknown Rx 200 MG/5 ML ORAL LIQ] Promethazine [Phenergan 6.25 mg/5 10 ml PO Q6H PRN #150 ml 09/27/21 Unknown Rx ml ORAL LIQ] cephALEXin 20 ml PO Q12H #400 ml 09/27/21 Unknown Rx metroNIDAZOLE [metroNIDAZOLE 70 gm VG QHS #1 gel.w.appl 09/27/21 Unknown Rx VAGINAL 0.75% gel] ED Physical Exam - General Limitations: No Limitations General appearance: alert, in no apparent distress - Head Head exam: Present: atraumatic, normocephalic, normal inspection - Eye Eye exam: Present: normal appearance, PERRL, EOMI Pupils: Present: normal accommodation - ENT ENT exam: Present: normal exam, normal orophraynx, mucous membranes moist, TM's normal bilaterally, normal external ear exam - Neck Neck exam: Present: normal inspection, full ROM - Respiratory Respiratory exam: Present: normal lung sounds bilaterally. Absent: respiratory distress, wheezes, rales, rhonchi, stridor, chest wall tenderness, accessory muscle use, prolonged expiratory - Cardiovascular Cardiovascular Exam: Present: regular rate, normal rhythm, normal heart sounds. Absent: systolic murmur, diastolic murmur, rubs, gallop - GI/Abdominal GI/Abdominal exam: Present: soft, tenderness (Palpable mild suprapubic tenderness), normal bowel sounds. Absent: guarding, rebound, organomegaly, mass - External exam: Present: erythema (Erythematous labia with swelling and thick purulent discharge), swelling, other (Female ED RN Adrienne present during the pelvic exam) Speculum exam: Present: erythema, vaginal discharge (Take greenish-yellow purulent discharge), cervical discharge. Absent: vaginal bleeding Bi-manual exam: Present: cervical motion tendernes, uterine tenderness - Extremities Exam Extremities exam: Present: normal inspection, full ROM, normal capillary refill - Back Exam Back exam: Present: normal inspection, full ROM. Absent: tenderness, CVA tenderness (R), CVA tenderness (L), muscle spasm, paraspinal tenderness, vertebral tenderness - Neurological Exam Neurological exam: Present: alert, oriented X3, CN II-XII intact, normal gait. Absent: reflexes normal - Psychiatric Psychiatric exam: Present: normal affect, normal mood, anxious - Skin Skin exam: Present: warm, dry, intact, normal color. Absent: rash ED Medical Decision Making - Lab Data Result diagrams: 09/27/21 02:15 09/27/21 02:15 - Radiology Data Radiology results: report reviewed, image reviewed [facility] [address] [place] [address] Ultrasound Report Signed Patient: JOE BRADFORD MR#: [id number] : 1995 Acct:[id number] Age/Sex: 25 / F ADM Date: 09/27/21 Loc: ED Attending Dr: Ordering Physician: NOEMY PORTILLO Date of Service: 09/27/21 Procedure(s): US OB transvaginal Accession Number(s): [id number] cc: NOEMY PORTILLO ULTRASOUND OBSTETRIC INDICATION / CLINICAL INFORMATION: Pain. Clinical Gestational Age (GA) in weeks, days: 8, 0 TECHNIQUE: Transabdominal and Transvaginal. COMPARISON: None available. FINDINGS: GESTATIONAL SAC: Well-defined oval shape and intrauterine in location. YOLK SAC: No significant abnormality. EMBRYO/FETUS: No significant abnormality. - [place]-Rump Length = 1.5 cm = 7, 6 weeks, days - Heart Rate, beats per minute (if present) = 168 ADNEXA: No significant abnormality. FREE FLUID: None. ADDITIONAL FINDINGS: None. IMPRESSION: 1. Single, living intrauterine with estimated sonographic age of 7, 6 weeks, days. heart tones noted at 168 bpm Signer Name: Mu Soler DO Signed: 09/27/2021 4:39 AM Workstation Name: [id number] Transcribed By: FRANCY Dictated By: MU SOLER DO Electronically Authenticated By: MU SOLER DO Signed Date/Time: 09/27/21438 DD/ 6 TD/TT: - Medical Decision Making This is a A3 25-year-old -[place] female with no past medical history who is approximately 7 weeks gestation and who presented to the ED with complaint of acute onset persistent suprapubic pain, vaginal discharge, dysuria, urinary frequency and urgency for the last 3 days. Patient states that she has also been experiencing significant persistent vaginal itching and swelling in the labia and is unable to wear undergarments because of pain. In the ED, jerman nicholas is alert and oriented by age and is not in any distress. Patient is dynamically stable. Patient was treated for pain with Tylenol in the ED. Lab test results were reviewed and are all nonactionable except for urinalysis that showed significant urinary tract infection, wet prep that was positive for trichomonas infection and bacterial vaginosis. Beta hCG quant was [id number]. The rest of the lab test results are nonactionable. Patient was also treated in the ED for trichomonas with Flagyl 2 g p.o. x1 and also received Rocephin 1 g intramuscular injection for suspected gonorrhea. Transvaginal ultrasound showed a single, living intrauterine with estimated sonographic age of 7 we eks and 6 days, with a heart tones noted at 168 bpm. On reevaluation, patient's pain is well controlled medication. Patient will discharge home on medications and advised to follow-up with [employer] TRAFFIC CONTROL MANAGER physician in 5 to 7 days for reevaluation or return to the ED immediately if symptoms get worse. - Differential Diagnosis UTI; trichomonas; STD; ovarian cyst; chlamydia/gonorrhea; bacterial vagino Critical care attestation.: If time is entered above; I have spent that time in minutes in the direct care of this critically ill patient, excluding procedure time. ED Disposition Clinical Impression: Acute urinary tract infection, Abdominal pain during in first trimester, Bacterial vaginosis, Trichomoniasis of vagina, STD (sexually transmitted disease) Disposition: 01 HOME / SELF CARE / HOMELESS Is pt being admited?: No Does the pt Need Aspirin: No Condition: Stable Instructions: Abdominal Pain (ED), Bacterial Vaginosis (ED), and Urinary Tract Infection, Abdominal Pain During , [id number], Urinary Tract Infection, Adult, [id number]-[id number], Trichomoniasis, Bacterial Vaginosis, Ehsn-[id number]-[id number], Gonorrhea, Chlamydia, Female, [id number]-[id number]-[id number] Additional Instructions: Take medications as advised, drink plenty of fluids and follow-up with your [employer] TRAFFIC CONTROL MANAGER physician in 5 to 7 days for reevaluation. Ensure that you observe safe sexual practices. The transvaginal ultrasound shows a single live intrauterine of approximately 7 weeks and 6 days with a heart rate of 168 bpm. Return to the ED immediately if symptoms get worse. Prescriptions: metroNIDAZOLE [metroNIDAZOLE VAGINAL 0.75% gel] 70 gm VG QHS #1 gel.w.appl Acetaminophen [Acetaminophen ORAL LIQ] 20 ml PO Q6H PRN #240 ml PRN Reason: Pain , Severe (7-10) cephALEXin 20 ml PO Q12H #400 ml Promethazine [Phenergan 6.25 mg/5 ml ORAL LIQ] 10 ml PO Q6H PRN #150 ml PRN Reason: Nausea And Vomiting Azithromycin Oral Liqd [Zithromax 200 MG/5 ML ORAL LIQ] 25 ml PO ONCE #25 ml Referrals: BIPIN ARITA MD [Staff Physician] - 3-5 Days Forms: STI Treatment and Prevention Time of Disposition: 06:32 Print Language: UZBEK
[2021-09-27 07:49] VITALS: BP 138/82
== END 2021-09-27 05:00 | disposition home or self-care (01) ==
LOC: ED 02:02
DX: O23.41 Unspecified infection of urinary tract in pregnancy, first trimester (principal); N39.0 Urinary tract infection, site not specified; O26.891 Other specified pregnancy related conditions, first trimester; R10.9 Unspecified abdominal pain; Z3A.01 Less than 8 weeks gestation of pregnancy; A64 Unspecified sexually transmitted disease
CPT/HCPCS: 36415; 76801; 76817; 80053; 81001; 84702; 84703; 85025; 87086; 87210; 99284; J3490; Q0162

== ENCOUNTER 2022-01-31 10:17 | Outpatient (CLI) | payer MEDICAID ==
[2022-01-31] MEDS ORDERED: MORPHINE 4 MG/1 ML INJ IV ONE (10:58)
[2022-01-31 10:59] VITALS: BP 119/90
--- NOTE | 2022-01-31 11:35 | Emergency Department Report ---
ED General Adult HPI - General Chief complaint: Shoulder Injury Stated complaint: SHOULDER OUT OF PLACE Time Seen by Provider: 01/31/22 11:12 Source: patient Mode of arrival: Wheelchair Limitations: No Limitations - History of Present Illness Initial comments: Patient presents with complaints of pain in her right shoulder x 1 day, sharp/throbbing, non radiating, 8/10, worsened by any attempts of arm movement, not relieved by anything. Denies any numbness, weakness, recent fall, trauma. Has a hx of recurrent spontaneous shoulder dislocations. Patient is 26 weeks . Patient states she does not want to do the procedure with local anesthesia but only with conscious sedation. Severity scale (0 -10): 10 - Related Data Previous Rx's Medication Instructions Recorded Last Taken Type predniSONE [Deltasone] 3 tab PO QDAY 5 Days #15 tab 12/15/18 Unknown Rx Sulfamethoxazole/Trimethoprim 1 each PO BID 10 Days #20 tablet 12/27/18 Unknown Rx [Bactrim DS TAB] cephALEXin [Keflex] 500 mg PO QID 10 Days #40 capsule 12/27/18 Unknown Rx Acetaminophen/Codeine [Tylenol 1 tab PO Q6H PRN #12 tab 01/12/19 Unknown Rx /Codeine # 3 tab] Ibuprofen [Motrin] 600 mg PO Q8H PRN #20 tablet 01/12/19 Unknown Rx Acetaminophen [Acetaminophen TAB] 650 mg PO Q6HR PRN #30 tablet 04/18/19 Unknown Rx cephALEXin [Keflex] 500 mg PO BID 10 Days #20 cap 04/18/19 Unknown Rx Acyclovir [Zovirax Tab] 400 mg PO Q8H 10 Days #30 tab 05/27/19 Unknown Rx Doxylamine Succinate/Vit B6 1 each PO Q6HR #14 tablet. 12/18/19 Unknown Rx [Maureen Landa 10-10 mg Tablet] HYDROcodone/Acetaminop 7.5-325 15 ml PO Q4HR PRN #90 ml 03/04/21 Unknown Rx [[place]] Acetaminophen [Acetaminophen ORAL 20 ml PO Q6H PRN #240 ml 09/27/21 Unknown Rx LIQ] Azithromycin Oral Liqd [Zithromax 25 ml PO ONCE #25 ml 09/27/21 Unknown Rx 200 MG/5 ML ORAL LIQ] Promethazine [Phenergan 6.25 mg/5 10 ml PO Q6H PRN #150 ml 09/27/21 Unknown Rx ml ORAL LIQ] cephALEXin 20 ml PO Q12H #400 ml 09/27/21 Unknown Rx metroNIDAZOLE [metroNIDAZOLE 70 gm VG QHS #1 gel.w.appl 09/27/21 Unknown Rx VAGINAL 0.75% gel] Allergies Allergy/AdvReac Type Severity Reaction Status Date / Time No Known Allergies Allergy Verified 05/27/21 09:08 ED Review of Systems ROS: Stated complaint: SHOULDER OUT OF PLACE Other details as noted in HPI Comment: All other systems reviewed and negative Constitutional: denies: chills, fever ED Past Medical Hx - Past Medical History Hx Hypertension: No Hx CVA: No Hx Heart Attack/AMI: No Hx Congestive Heart Failure: No Hx Diabetes: No Hx Deep Vein Thrombosis: No Hx Pulmonary Embolism: No Hx GERD: No Hx Liver Disease: No Hx Renal Disease: No Hx Sickle Cell Disease: No Hx Arthritis: No Hx Headaches / Migraines: No Hx Seizures: No Hx Kidney Stones: No Hx Psychiatric Treatment: No Hx Asthma: No Hx COPD: No Hx Tuberculosis: No Hx Dementia: No Hx HIV: No Additional medical history: Right shoulder dislocations - Surgical History Hx Coronary Stent: No Hx Open Heart Surgery: No Hx Pacemaker: No Hx Internal Defibrillator: No Hx Cholecystectomy: No Hx Appendectomy: No Hx Breast Surgery: No Additional Surgical History: - Social History Smoking Status: Never Smoker Substance Use Type: None, Marijuana - Medications Home Medications: Home Medications Medication Instructions Recorded Confirmed Last Taken Type predniSONE [Deltasone] 3 tab PO QDAY 5 Days #15 tab 12/15/18 Unknown Rx Sulfamethoxazole/Trimethoprim 1 each PO BID 10 Days #20 tablet 12/27/18 Unknown Rx [Bactrim DS TAB] cephALEXin [Keflex] 500 mg PO QID 10 Days #40 capsule 12/27/18 Unknown Rx Acetaminophen/Codeine [Tylenol 1 tab PO Q6H PRN #12 tab 01/12/19 Unknown Rx /Codeine # 3 tab] Ibuprofen [Motrin] 600 mg PO Q8H PRN #20 tablet 01/12/19 Unknown Rx Acetaminophen [Acetaminophen TAB] 650 mg PO Q6HR PRN #30 tablet 04/18/19 Unknown Rx cephALEXin [Keflex] 500 mg PO BID 10 Days #20 cap 07/16/19 Unknown Rx Acyclovir [Zovirax Tab] 400 mg PO Q8H 10 Days #30 tab 05/27/19 Unknown Rx Doxylamine Succinate/Vit B6 1 each PO Q6HR #14 tablet. 12/18/19 Unknown Rx [Maureen Landa 10-10 mg Tablet] HYDROcodone/Acetaminop 7.5-325 15 ml PO Q4HR PRN #90 ml 03/04/21 Unknown Rx [[place]] Acetaminophen [Acetaminophen ORAL 20 ml PO Q6H PRN #240 ml 09/27/21 Unknown Rx LIQ] Azithromycin Oral Liqd [Zithromax 25 ml PO ONCE #25 ml 09/27/21 Unknown Rx 200 MG/5 ML ORAL LIQ] Promethazine [Phenergan 6.25 mg/5 10 ml PO Q6H PRN #150 ml 09/27/21 Unknown Rx ml ORAL LIQ] cephALEXin 20 ml PO Q12H #400 ml 09/27/21 Unknown Rx metroNIDAZOLE [metroNIDAZOLE 70 gm VG QHS #1 gel.w.appl 09/27/21 Unknown Rx VAGINAL 0.75% gel] ED Physical Exam - General Limitations: No Limitations General appearance: alert, in no apparent distress - Head Head exam: Present: atraumatic, normocephalic - Eye Eye exam: Present: PERRL, EOMI - ENT ENT exam: Present: mucous membranes moist, other (airway patent) - Neck Neck exam: Present: other (supple; no JVD) - Respiratory Respiratory exam: Present: other (good air entry, nml I:E, CTAB, no use of PENELOPE) - Cardiovascular Cardiovascular Exam: Present: regular rate. Absent: rubs, gallop - GI/Abdominal GI/Abdominal exam: Present: soft, normal bowel sounds. Absent: tenderness, guarding - Extremities Exam Extremities exam: Present: other (deformity with severe decreased ROM) - Back Exam Back exam: Present: full ROM. Absent: tenderness - Neurological Exam Neurological exam: Present: alert, oriented X3, CN II-XII intact. Absent: motor sensory deficit - Skin Skin exam: Present: warm, normal color ED Course Vital Signs 01/31/22 01/31/22 01/31/22 10:34 10:52 12:52 Temperature 98.2 F Pulse Rate 105 H 93 H 101 H Respiratory 18 16 Rate Blood Pressure 119/90 Blood Pressure 138/73 [Right] O2 Sat by Pulse 97 100 99 Oximetry ED Medical Decision Making - Lab Data XR R shoulder: anterior glenohumeral dislocation without clear cut fracture (wet read by Dr. Alex) - Medical Decision Making Patient only wants to do the reduction under conscious sedation. L&D called for EFM. They state they are unable to perform it in the ER. Dr. Casarez (Anesthesiologist) consulted for moderate sedation. She states patient is a high risk for aspiration and would need to have the procedure done under general anesthesia, which would require OR. This MD is not a surgeon and notr credentialed to do procedures in the OR. Dr. Boggs (orthopedic surgeon solution manager) then consulted. He will see patient Dr. Castro (OB solution manager) called. She accepted the patient in L&D. Patient's primary OB (Dr. Johnson) does not have privileges here. Critical care attestation.: If time is entered above; I have spent that time in minutes in the direct care of this critically ill patient, excluding procedure time. ED Disposition Clinical Impression: Recurrent dislocation, right shoulder Disposition: ADMITTED INPATIENT Is pt being admited?: Yes Does the pt Need Aspirin: No Condition: Stable Time of Disposition: 12:05 (Patient transferred to Labor and Delivery to Dr. Castro. Sign out was given by me to the accepting physician.)
--- NOTE | 2022-01-31 12:47 | XRay Report ---
RIGHT SHOULDER 3 VIEW(S) INDICATION / CLINICAL INFORMATION: R shoulder pain COMPARISON: Prior shoulder radiograph dated 03/04/2021 FINDINGS: BONES / JOINT(S): There is anterior and inferior dislocation of the right humeral head in relation to the glenoid. No definite fracture identified. AC joint appears normal. SOFT TISSUES: No significant abnormality. ADDITIONAL FINDINGS: None. Signer Name: Oseas Moore MD Signed: 01/31/2022 12:43 PM Workstation Name: [id number]
[2022-01-31] MEDS ORDERED: oxyCODONE /ACETAMINOPHEN 5-325MG TAB PO PRN (15:04)
--- NOTE | 2022-01-31 18:39 | XRay Report ---
Right shoulder single view INDICATION: Right shoulder pain IMPRESSION: Successful reduction of right shoulder dislocation. Signer Name: Edmund Ragsdale MD Signed: 01/31/2022 6:35 PM Workstation Name: [id number]
--- NOTE | 2022-02-01 20:07 | Event Note ---
Date: 01/31/22 Late entry: Patient currently at 26 wks with right shoulder dislocation received from ER for monitoring prior to reduction under general anesthesia. monitoring commenced. dED physician contacted fro details on OR case and instructed to contact ortho on-call, Dr. Jimenez. Ortho contactede and notes patient discussed with him, but there was no mention of reduction in OR under general anesthesia. States it can be done following ice to affected area. Notes able to to complete tomorrow as he is unavailable. Anesthesia, Dr. Casarez, also called and notes she was contacted by ED physician regarding MAC and informed him based patient risk due to her gestation, recommended general, but no case posted. To patient room for discussion. NOtes she was never told about having reduction in or under general and does not wish to have that or MAC. Notes typically reduction done after she receives pain medicine. ED physician called in order to inquire about it being done the at way in the ED as ortho not available at this time and informed he does not do it without sedation and will not take patient. Ortho again called to inquire if someone else can reduce and instructed it is easy to do and technique described. Animal Sitter informed provider I do not take care of shoulder injuries. computer operations supervisor contacted for further assistance. Patient given pain medication. Remians tearful as she feels no one wants to fix her shoulder. I reassured patient we would continue to work to have it fixed. After multiple calls made to various outlets informed by fuel house attendant patient to remain on L&D and ortho to come for reduction. Off informed floor to evaluate another ER patient and prepare for surgery. On return patient had reduced shoulder on her own. ORtho called for further instructions. Instructed to order xray of shoulder and he had arrived at hospital and would see the patient. Off the floor to the OR. On return patient had been discharged.
== END 2022-01-31 18:35 | disposition home or self-care (01) ==
LOC: LD 10:17 → ED 10:17 → LD 12:31 → ED 12:31 → LD 12:31 → EDSTATUS 15:18 → LD 18:35
PROVIDERS: ATTEND Student in an Organized Health Care Education/Training Program
DX: S43.014A Anterior dislocation of right humerus, initial encounter (principal); X58.XXXA Exposure to other specified factors, initial encounter; Y93.89 Activity, other specified; Y92.89 Other specified places as the place of occurrence of the external cause; Y99.8 Other external cause status
CPT/HCPCS: 73020; 73030; J2270